=== PATIENT | female | born 1945 | race Caucasian/White ===

== ENCOUNTER 2024-09-08 09:55 | Outpatient (CLI) | payer MEDICARE, OTHER ==
[~2024-09-08 09:55] MED LIST: INDA2.5T5 PO; MULT-342 PO; OMEP20CA15 PO; POTA-206 PO; POTA-207 PO
== END 2024-09-08 23:59 | disposition home or self-care (01) ==
LOC: RAD 09:55
PROVIDERS: ATTEND Otolaryngology
DX: R13.12 Dysphagia, oropharyngeal phase (principal); R13.14 Dysphagia, pharyngoesophageal phase; C80.1 Malignant (primary) neoplasm, unspecified; R49.0 Dysphonia; K21.9 Gastro-esophageal reflux disease without esophagitis; Z79.01 Long term (current) use of anticoagulants; Z79.899 Other long term (current) drug therapy; Z85.810 Personal history of malignant neoplasm of tongue; Z92.3 Personal history of irradiation; Z92.21 Personal history of antineoplastic chemotherapy
CPT/HCPCS: 74230